=== PATIENT | female | born 1980 | race Two or more races ===

== ENCOUNTER 2023-12-24 14:29 | Emergency (ER) | payer MEDICAID ==
[~2023-12-24] VITALS: Ht 162.6 cm; Wt 66.6 kg
[2023-12-24 15:23] VITALS: BP 148/82; PULSE 107; RESP 18; TEMP 98.9; O2SAT 97
== END 2023-12-24 15:36 | disposition home or self-care (01) ==
LOC: ER 14:29
DX: S91.011A Laceration without foreign body, right ankle, initial encounter (principal); W25.XXXA Contact with sharp glass, initial encounter; Y93.89 Activity, other specified; Y92.89 Other specified places as the place of occurrence of the external cause; Y99.8 Other external cause status
CPT/HCPCS: 12001

== ENCOUNTER 2025-06-10 16:38 | Emergency (ER) | payer MEDICAID ==
[~2025-06-10] VITALS: Ht 162.6 cm; Wt 68.0 kg
[2025-06-10] MEDS ORDERED: TRAM-626 PO (17:46)
[2025-06-10] MEDS ORDERED: METH4PAK PO (17:46)
--- NOTE | 2025-06-10 17:46 | ED.PDOC ---
Back pain HPI HPI Comments The patient presents with left-sided sciatic pain following a fall three months ago. Three months ago patient fell at a gas station while attempting to jump over a pump landing on the right knee. A few days post fall the began experiencing pain in the tailbone, waist, and left sciatic nerve with the pain radiating down the posterior leg. The pain has progressively worsened currently rated 7/10 in his exacerbated by ambulation Patient also has difficulty sleeping due to the pain and experienced sharp pains in middle of the night. Two months ago she sought urgent care and received an injection which provided temporary improvement. She has also been taking [id number] ibuprofen with minimal improvement. Denies history of chronic steroid use or history of osteoporosis Denies history of cancer Denies fevers chills night sweats nausea vomiting unintentional weight loss Denies abdominal tearing pain Denies syncope Denies urinary changes or urinary incontinence Denies numbness tingling of the groin her inner thigh Denies previous back procedures or surgeries She has no history of back surgeries, no MHx, Chief Complaint: Back Pain Time Seen by MD: 17:34 Primary Care Provider: CECILIA Spencer Notes: Nurses Notes, Medications, Allergies Allergies: Coded Allergies: NO KNOWN ALLERGIES (Unverified , 12/24/23) Home Meds Active Scripts Methylprednisolone (Medrol Dosepak) 4 Mg Lv, 4 MG PO UD for 7 Days, #21 TAB 0 Refills [facility] Prov:ELISEO NETTLES TWISTING PRESS OPERATOR 06/10/25 Tramadol HCl (Tramadol HCl) 50 Mg Tab, 50 MG PO Q6HP PRN for 5 Days, #20 TAB 0 R efills Prov:ELISEO NETTLES NP 06/10/25 Information Source: Patient Mode of Arrival: Ambulatory Past Medical History PAST MEDICAL HISTORY: Denies Surgical History: Denies all surgeries BRUSH FABRICATION SUPERVISOR History: No Pertinent BRUSH FABRICATION SUPERVISOR History Family History Family History: Reviewed,noncontributory to illness Social History Smoker: Non-Smoker Alcohol: Denies ETOH Use Drugs: Denies Drug Use Lives In: Home Physical Exam General Appearance: No Apparent Distress, Normal HEENT: Normal ENT Inspection, Pharynx Normal, TMs Normal Neck: Full Range of Motion, Non-Tender, Normal, Normal Inspection Respiratory: Chest Non-Tender, Lungs Clear, No Accessory Muscle Use, No Respiratory Distress, Normal Breath Sounds Cardiovascular: No Edema, No JVD, No Murmur, No Gallop, Normal Peripheral Pulses, Regular Rate/Rhythm Breast Exam: Deferred Gastrointestinal: No Organomegaly, Non Tender, No Pulsatile Mass, Normal Bowel Sounds, Soft Genitalia: Deferred Pelvic: Deferred Rectal: Deferred Extremities: No calf tenderness, Normal capillary refill, Normal inspection, Normal range of motion, Non-tender, No pedal edema Musculoskeletal : Location: Right Extremity Location: Leg (Right straight leg raise test) Apperance: Normal Neurologic: Alert, plant protection superintendent II-XII nml as Tested, No Motor Deficits, Normal Affect, Normal Mood, No Sensory Deficits Cerebellar Function: Normal Reflexes: Normal Skin: Dry, Normal Color, Warm Lymphatic: No Adenopathy Was a procedure done? Was a procedure done?: No Back Pain Differential Dx Differential Diagnosis: Musculoskeletal Pain X-Ray, Labs, Meds, VS Vital Signs Date Time Temp Pulse Resp B/P (MAP) Pulse Ox O2 Delivery O2 Flow Rate FiO2 06/10/25 18:14 78 16 98 Room Air 06/10/25 18:14 98.7 78 16 136/68 (90) 97 98.7 06/10/25 16:48 98.4 80 16 149/57 97 98.4 Current Medications Medications (Trade) Dose Ordered Sig/Maribel Route Start Time Stop Time Status Last Admin Ketorolac Tromethamine (Toradol Injection) 60 mg ONCE ONCE IM 06/10/25 17:45 06/10/25 18:00 DC 06/10/25 18:04 Methylprednisolone Sodium Succinate (Solu Medrol) 125 mg ONCE ONCE IM 06/10/25 17:45 06/10/25 17:59 DC 06/10/25 18:04 Acetaminophen/ Hydrocodone Bitart ([place] 5/325MG Tab) 1 tab ONCE ONCE PO 06/10/25 17:45 06/10/25 17:58 DC 06/10/25 18:03 X-Ray, Labs, Meds, VS Comment Given patient's history and exam: Sciatica, cord compression, cauda equina, aortic dissection, Guillain-Luxor syndrome, epidural hematoma/abscess were all considered. Patient not toxic or ill-appearing. Vital signs within acceptable limits. Positive straight leg raise on exam with tenderness to the buttock consistent with sciatica. No vertebral point tenderness noted over the T or L- spine. No paraspinal muscle tenderness noted. No fever or IV drug use the. The differential for an acute vascular, neurologic, malignant, or infectious etiologies is much less likely given his/her presentation. The patient does not warrant a radiological exam at this time. Advised patient to try to take alternating Ibuprofen and Tylenol to help with inflammation of the sciatic nerve and surrounding tissues and should try to do low back stretches but also try to rest and avoid excessive sitting and bending. On reassessment, the patient's symptoms improved, and patient was able to ambulate without assistive devices. The patient will f/u with PMD to see if his/her symptoms maria alejandra. An MRI may need to be ordered if the symptoms worsen or do not improve over time. The patient was counseled in regard to the diagnosis and management of the condition and verbalized understanding of this. The patient understands to return to the ER or seek immediate medical attention if the symptoms worsen or return. Time of 1ST Reevaluation: 17:30 Reevaluation 1ST: Improved Patient Education/Counseling: Diagnosis, Treatment Family Education/Counseling: Diagnosis, Treatment SEPSIS Sepsis Screen Date sepsis recognized/suspect: Jun 10, 2025 Time Sepsis recognized/suspect: 1653 Recent Procedure: No On Antibiotic Therapy: No Respiratory Rate >20: No Heart Rate >90: No Temp<36 C (96.8 F) or >38.3 C: No SBP <90 or MAP <65 mmHG: No New Acute Mental Status Change: No Is the patient on CPAP, BIPAP,: No Vital Signs Date Time Temp Pulse Resp B/P (MAP) Pulse Ox O2 Delivery O2 Flow Rate FiO2 06/10/25 18:14 78 16 98 Room Air 06/10/25 18:14 98.7 78 16 136/68 (90) 97 98.7 06/10/25 16:48 98.4 80 16 149/57 97 98.4 Departure 1 Departure Time of Disposition: 17:45 Impression: Primary Impression: Sciatica Qualified Codes: M54.32 - Sciatica, left side Disposition: 01 HOME / SELF CARE / HOMELESS Condition: Stable e-Prescriptions Methylprednisolone (Medrol Dosepak) 4 Mg Lv 4 MG PO UD for 7 Days, #21 TAB 0 Refills UAD Prov: ELISEO NETTLES TWISTING PRESS OPERATOR 06/10/25 Tramadol HCl (Tramadol HCl) 50 Mg Tab 50 MG PO Q6HP PRN for 5 Days, #20 TAB 0 Refills Prov: ELISEO NETTLES NP 06/10/25 Critical Care Note Critical Care Time?: No Stability Stability form required: No Heart Score Heart Score: Heart Score Response (Comments) Value History N/A 0 EKG N/A 0 Age N/A 0 Risk Factors N/A 0 Troponin N/A 0 Total 0 ELISEO NETTLES NP Jun 10, 2025 17:46
[2025-06-10] MEDS: HYDROcodone-ACET 5/325MG TAB PO ONE (18:03)
[2025-06-10] MEDS: methylPREDNISolone SOD SUCC 125 MG/2 ML VL IM ONE (18:04)
[2025-06-10] MEDS: KETOROLAC TROMETH 60MG/2ML VIAL IM ONE (18:04)
[2025-06-10 18:14] VITALS: BP 136/68; PULSE 78; RESP 16; TEMP 98.7; O2SAT 98
== END 2025-06-10 18:53 | disposition home or self-care (01) ==
LOC: ER 16:38
DX: M54.32 Sciatica, left side (principal); Z79.899 Other long term (current) drug therapy
CPT/HCPCS: 96372; 99284; J1885; J2919

== ENCOUNTER 2025-06-14 13:15 | Emergency (ER) | payer MEDICAID ==
[~2025-06-14] VITALS: Ht 157.5 cm; Wt 67.0 kg
[~2025-06-14 13:15] MED LIST: METH4PAK PO; TRAM-626 PO
--- NOTE | 2025-06-14 13:58 | ED.PDOC ---
Back pain HPI HPI Comments A 44 YEAR OLD FEMALE PRESENTS TO THE ED WITH COMPLAINT OF LOWER BACK PAIN. PATENT STATES SHE HAS BEEN EXPERIENCING LOWER BACK PAIN THAT RADIATES DOWN HER LEFT LEG FOR THE PAST 5 DAYS. PATIENT REPORTS SHE CAME TO THIS ED FOR THIS COMPLAINT 5 DAYS AGO WHERE SHE WAS GIVEN A TORADOL INJECTION, SOLU-MEDROL INJECTION, AND 1 NORCO HERE IN THE ED AND WAS LATER PRESCRIBED TRAMADOL AND A MEDROL DOSEPAK, BUT NOTES THERE HAS BEEN NO IMPROVEMENT IN HER PAIN. PATIENT DENIES SADDLE ANESTHESIA, URINARY INCONTINENCE, BOWEL INCONTINENCE, FEVER, CHILLS, SHORTNESS OF BREATH, CHEST PAIN, ABDOMINAL PAIN, NAUSEA, VOMITING, HEADACHE, OR OTHER COMPLAINTS. NO OTHER SYMPTOMS OR MODIFYING FACTORS AT THIS TIME.PATIENT IS ALERT, ORIENTED X 4, AND HAS STEADY GAIT. Chief Complaint: Back Pain Time Seen by MD: 13:23 Primary Care Provider: CECILIA Spencer Notes: Nurses Notes, Medications, Allergies Allergies: Coded Allergies: NO KNOWN ALLERGIES (Unverified , 12/24/23) Home Meds Active Scripts Prednisone (Prednisone) 20 Mg Tab, 40 MG PO DAILY, #20 TAB Prov:JOSE MANUEL HOLBROOK 06/14/25 Hydrocodone-Acetaminophen (Hydrocodone Bitartrate/AC 5-325 mg) 1 Tab Tab, 1 TAB PO BID, #10 TAB Prov:JOSE MANUEL HOLBROOK 06/14/25 Methylprednisolone (Medrol Dosepak) 4 Mg Lv, 4 MG PO UD for 7 Days, #21 TAB 0 Refills UAD Prov:ELISEO NETTLES NP 06/10/25 Tramadol HCl (Tramadol HCl) 50 Mg Tab, 50 MG PO Q6HP PRN for 5 Days, #20 TAB 0 Refills Prov:ELISEO NETTLES NP 06/10/25 Information Source: Patient Mode of Arrival: Ambulatory Timing: Days Duration: Since onset, Days Location of Back pain: (B) Lumbar Radiates to: Anterior: (L) Buttocks, (L) Calf, (L) Thigh Radiates to: Posterior: (L) Buttocks, (L) Calf, (L) Thigh Radiates to: Medial: (L) Buttocks, (L) Calf, (L) Thigh Radiates to: Lateral: (L) Buttocks, (L) Calf, (L) Thigh Severity: Moderate Prehospital treatment: None Quality: Aching, Cramping Onset: Spontaneous History of: None Modifying Factors: Movement Associated signs and symptoms: None Past Medical History PAST MEDICAL HISTORY: Denies Surgical History: Denies all surgeries LOAN ASSOCIATE History: No Pertinent LOAN ASSOCIATE History Family History Family History: Reviewed,noncontributory to illness Social History Smoker: Non-Smoker Alcohol: Denies ETOH Use Drugs: Denies Drug Use Lives In: Home Constitutional: denies: chills, diaphoresis, fatigue, fever, malaise, sweats, weakness, others EENTM: denies: blurred vision, double vision, ear bleeding, ear discharge, ear drainage, ear pain, ear ringing, eye pain, eye redness, hearing loss, mouth pain, mouth swelling, nasal discharge, nose bleeding, nose congestion, nose pa in, photophobia, tearing, throat pain, throat swelling, voice changes, others Respiratory: denies: cough, hemoptysis, orthopnea, SOB at rest, shortness of breath, SOB with excertion, stridor, wheezing, others Cardiovascular: denies: chest pain, dizzy spells, diaphoresis, Dyspnea on exertion, edema, irregular heart beat, left arm pain, lightheadedness, palpitations, PND, syncope, others Gastrointestinal: denies: abdomen distended, abdominal pain, blood streaked bowels, constipated, diarrhea, dysphagia, difficulty swallowing, hematemesis, melena, nausea, poor appetite, poor fluid intake, rectal bleeding, rectal pain, vomiting, others Genitourinary: denies: abnormal vagina bleeding, burning, dyspareunia, dysuria, flank pain, frequency, hematuria, incontinence, pain, , vagina discharge, urgency, others Neurological: denies: dizziness, fainting, headache, left sided numbness, left sided weakness, numbness, paresthesia, pre-existing deficit, right sided numbness, right sided weakness, seizure, speech problems, tingling, tremors, weakness, others Musculoskeletal: reports: back pain (LOWER BACK PAIN THAT RADIATES DOWN LEFT LEG), muscle pain; denies: gout, joint pain, joint swelling, muscle stiffness, neck pain, others Integumetry: denies: bruises, change in color, change in hair/nails, dryness, laceration, lesions, lumps, rash, wounds, others Allergic/Immunocompromised: denies: Difficulty Healing, Frequent Infections, Hives, Itching, others Hematologic/Lymphatic: denies: anemia, blood clots, easy bleeding, easy bruising, swollen glands, others Endocrine: denies: excessive hunger, excessive sweating, excessive thirst, excessive urination, flushing, intolerance to cold, intolerance to heat, unexplained weight gain, unexplained weight loss, others Psychiatric: denies: anxiety, bipolar disorder, depression, hopeless, panic disorder, schizophrenia, sleepless, suicidal, others All Other Systems: Reviewed and Negative Physical Exam General Appearance: No Apparent Distress, Normal HEENT: Normal ENT Inspection, PERRL/EOMI, Pharynx Normal, TMs Normal Neck: Full Range of Motion, Non-Tender, Normal, Normal Inspection Respiratory: Chest Non-Tender, Lungs Clear, No Accessory Muscle Use, No Respiratory Distress, Normal Breath Sounds Cardiovascular: No Edema, No JVD, No Murmur, No Gallop, Normal Peripheral Pulses, Regular Rate/Rhythm Breast Exam: Deferred Gastrointestinal: No Organomegaly, Non Tender, No Pulsatile Mass, Normal Bowel Sounds, Soft Genitalia: Deferred Pelvic: Deferred Rectal: Deferred Extremities: No calf tenderness, Normal capillary refill, Normal inspection, Normal range of motion, Non-tender, No pedal edema Musculoskeletal : Location: Bilateral Extremity Location: Back Apperance: Tenderness: Moderate (TENDERNESS AND MUSCLE SPASM ON LOWER BACK, NO BONY TENDERNESS, SWELLING AND DEFORMITY. ) Neurologic: Alert, field coil winder II-XII nml as Tested, No Motor Deficits, Normal Affect, Normal Mood, No Sensory Deficits Cerebellar Function: Normal Reflexes: Normal Skin: Dry, Normal Color, Warm Peripheral Pulses: 2+ carotid (R), 2+ carotid (L) Lymphatic: No Adenopathy Was a procedure done? Was a procedure done?: No Back Pain Differential Dx Differential Diagnosis: Musculoskeletal Pain, Strain, Other (LOWER BACK PAIN WITH LEFT SCIATICA) Other Differential Diagnosis SCIATICA X-Ray, Labs, Meds, VS Vital Signs Date Time Temp Pulse Resp B/P (MAP) Pulse Ox O2 Delivery O2 Flow Rate FiO2 06/14/25 13:16 98.0 76 16 129/56 97 98.0 Current Medications Medications (Trade) Dose Ordered Sig/Maribel Route Start Time Stop Time Status Last Admin Ketorolac Tromethamine (Toradol Injection) 60 mg ONCE ONCE IM 06/14/25 14:00 06/14/25 14:01 DC 06/14/25 14:55 INDICATION: low back pain to left lower leg TECHNIQUE: Frontal and lateral views of the lumbar spine were obtained. COMPARISON: None FINDINGS: . There are no fractures or subluxations. Vertebral body heights and disc spaces are well maintained. Paravertebral soft tissues are unremarkable. IMPRESSION: 1. Of the visualized spine, there is no evidence for fracture or subluxation. ATED BY: VIRGINIA BELLO MD DICTATED DATE/TIME: 06/14/251423 SIGNED BY: VIRGINIA BELLO MD SIGNED DATE/TIME: 06/14/251423 CC: X-Ray, Labs, Meds, VS Comment EXTERNAL MEDICAL RECORDS REVIEWED: [NONE] INDEPENDENT HISTORIANS: [NONE] SOCIAL DETERMINANTS OF HEALTH: [NONE] LABS ORDERED: NONE REVIEWED AND INTERPRETED RESULTS: NONE IMAGING ORDERED: XR L-SPINE TREATMENTS ORDERED: TORADOL 60 MG IM PROCEDURES PERFORMED: NONE CRITICAL CARE TIME: NONE I HAVE DISCUSSED THE PATIENT WITH THE ATTENDING PHYSICIAN DR. ZACH LOVE AND SHE AGREES WITH THE PATIENT'S PLAN OF CARE AND DISPOSITION. BASED ON HISTORY OF PRESENT ILLNESS, AND PHYSICAL EXAM, PATIENT WILL BE DISCHARGED HOME. DISCUSSED PLAN FOR DISCHARGE HOME WITH RX [NORCO 5/325MG AND PREDNISONE]. MEDICATION WARNINGS GIVEN. SHARED DECISION MAKING: PATIENT INSTRUCTED TO FOLLOW UP WITH [facility] IN 1-2 DAYS FOR RE-EVALUATION OF SYMPTOMS. PATIENT VERBALIZES UNDERSTANDING TO RETURN TO ED FOR NEW OR WORSENING SYMPTOMS OR IF FOLLOW UP WITH PCP CANNOT BE OBTAINED. PATIENT FEELS COMFORTABLE GOING HOME AT THIS TIME. ALL QUESTIONS ADDRESSED AT TIME OF DISCHARGE. Images Reviewed?: Images reviewed and evaluated by me Time of 1ST Reevaluation: 15:05 Reevaluation 1ST: Improved Patient Education/Counseling: Diagnosis, Treatment, Need For Follow Up Family Education/Counseling: Diagnosis, Treatment, Need For Follow Up Medical Screening: No EMC Exist At This Time SEPSIS Sepsis Screen Date sepsis recognized/suspect: Jun 14, 2025 Time Sepsis recognized/suspect: 1318 Recent Procedure: No On Antibiotic Therapy: No Respiratory Rate >20: No Heart Rate >90: No Temp<36 C (96.8 F) or >38.3 C: No SBP <90 or MAP <65 mmHG: No New Acute Mental Status Change: No Is the patient on CPAP, BIPAP,: No Physician Orders Lumbar Spine 3 View (06/14/25 13:53) Vital Signs Date Time Temp Pulse Resp B/P (MAP) Pulse Ox O2 Delivery O2 Flow Rate FiO2 06/14/25 13:16 98.0 76 16 129/56 97 98.0 Medications Medications Dose Ordered Sig/Maribel Route Start Time Stop Time Status Last Admin Dose Admin Ketorolac Tromethamine 60 mg ONCE ONCE IM 06/14/25 14:00 06/14/25 14:01 DC 06/14/25 14:55 Departure 1 Departure Time of Disposition: 15:05 Impression: Primary Impression: Low back pain with left-sided sciatica Qualified Codes: M54.42 - Lumbago with sciatica, left side Disposition: HOME / SELF CARE / HOMELESS Condition: Stable Additional Instructions: FOLLOW-UP WITH PCP IN 1 TO 2 DAYS FOR MRI STUDY. TAKE MEDICATIONS PRESCRIBED. RETURN TO ED FOR ANY NEW OR WORSENING SYMPTOMS. e-Prescriptions Prednisone (Prednisone) 20 Mg Tab 40 MG PO DAILY, #20 TAB Prov: JOSE MANUEL HOLBROOK 06/14/25 Hydrocodone-Acetaminophen (Hydrocodone Bitartrate/AC 5-325 mg) 1 Tab Tab 1 TAB PO BID, #10 TAB Prov: JOSE MANUEL HOLBROOK 06/14/25 Discharged With: Self Critical Care Note Critical Care Time?: No Stability Stability form required: No I personally scribed for JOSE MANUEL HOLBROOK ([email or web address]) on 06/14/25 at 13:58. Electronically submitted by Emiliano Guevara ([email or web address]). I personally scribed for JOSE MANUEL HOLBROOK ([email or web address]) on 06/14/25 at 14:36. Electronically submitted by Emiliano Guevara ([email or web address]). I personally scribed for JOSE MANUEL HOLBROOK ([email or web address]) on 06/14/25 at 15:01. Electronically submitted by Emiliano Guevara ([email or web address]). JOSE MANUEL HOLBROOK Jun 14, 2025 13:58
--- NOTE | 2025-06-14 14:26 | DVH ---
INDICATION: low back pain to left lower leg TECHNIQUE: Frontal and lateral views of the lumbar spine were obtained. COMPARISON: None FINDINGS: . There are no fractures or subluxations. Vertebral body heights and disc spaces are well m aintained. Paravertebral soft tissues are unremarkable. IMPRESSION: 1. Of the visualized spine, there is no evidence for fracture or subluxation.
[2025-06-14] MEDS: KETOROLAC TROMETH 60MG/2ML VIAL IM ONE (14:55)
[2025-06-14] MEDS ORDERED: HYDR-4902 PO (15:01)
[2025-06-14] MEDS ORDERED: PRED20TA2 PO (15:01)
[2025-06-14 15:10] VITALS: BP 118/74; TEMP 98.6
[2025-06-14 15:16] VITALS: PULSE 69; RESP 16; O2SAT 98
== END 2025-06-14 15:20 | disposition home or self-care (01) ==
LOC: ER 13:15
DX: M54.42 Lumbago with sciatica, left side (principal); Z79.899 Other long term (current) drug therapy
CPT/HCPCS: 72100; 96372; 99283; J1885

== ENCOUNTER 2025-07-18 17:31 | Emergency (ER) | payer MEDICAID ==
[~2025-07-18] VITALS: Ht 162.6 cm; Wt 69.2 kg
[~2025-07-18 17:31] MED LIST changes: +HYDR-4902 PO; +PRED20TA2 PO
[2025-07-18 17:35] VITALS: BP 136/80; PULSE 16; RESP 84; TEMP 98.4; O2SAT 99
[2025-07-18] MEDS ORDERED: NAP500T PO (20:17)
[2025-07-18] MEDS ORDERED: METH4PAK PO (20:17)
[2025-07-18] MEDS ORDERED: CYCL-837 PO (20:17)
--- NOTE | 2025-07-18 20:17 | ED.PDOC ---
Musculoskeletal HPI Comments 44-year-old female presents to ER with complaints of back pain x2 weeks. Patient past medical history significant for chronic lumbar back pain/left-sided sciatica reports that she has been experiencing "a flare-up" of left-sided sciatic back pain x2 weeks. Denies any known trauma/injury and notes that Naprosyn and methocarbamol have given her relief in the past. She rates her current pain an 8/10 to left lower lumbar region with radiation down left posterior leg. Patient presents to ER ambulatory on arrival, with steady, in no distress and states she does have chronic numbness/tingling down posterior left leg. States she is following up to get an MRI of her lumbar spine next month on "August 06". Denies fever, body aches, chills, night sweats, shortness of breath, chest pain, extremity weakness, changes in urination/BM or any further symptoms/complaints Chief Complaint: Lower Extremity Time Seen by MD: 18:10 Primary Care Provider: CECILIA Spencer Notes: Nurses Notes, Medications, Allergies Allergies: Coded Allergies: NO KNOWN ALLERGIES (Unverified , 12/24/23) Home Meds Active Scripts Naproxen (NAPROSYN TABLET) 500 Mg Tb, 1 TAB PO BID PRN, #30 TAB 0 Refills Prov:JOHN MISHRA 07/18/25 Methylprednisolone (Medrol Dosepak) 4 Mg Lv, 4 MG PO UD, #21 TAB 0 Refills UAD Prov:JOHN MISHRA 07/18/25 Cyclobenzaprine Hcl (Cyclobenzaprine Hcl) 5 Mg Tab, 1 TAB PO QHSP, #14 TAB 0 Ref ills Prov:JOHN MISHRA 07/18/25 Prednisone (Prednisone) 20 Mg Tab, 40 MG PO DAILY, #20 TAB Prov:JOSE MANUEL HOLBROOK 06/14/25 Hydrocodone-Acetaminophen (Hydrocodone Bitartrate/AC 5-325 mg) 1 Tab Tab, 1 TAB PO BID, #10 TAB Prov:JOSE MANUEL HOLBROOK 06/14/25 Methylprednisolone (Medrol Dosepak) 4 Mg Lv, 4 MG PO UD for 7 Days, #21 TAB 0 Refills UAD Prov:ELISEO NETTLES NP 06/10/25 Tramadol HCl (Tramadol HCl) 50 Mg Tab, 50 MG PO Q6HP PRN for 5 Days, #20 TAB 0 Refills Prov:ELISEO NETTLES LIV 06/10/25 Information Source: Patient Mode of Arrival: Ambulatory Past Medical History Past Medical History (Other): Chronic lumbar back pain Left sided sciatica Surgical History: Denies all surgeries SERVICE GIRL History: No Pertinent SERVICE GIRL History Family History Family History: Unknown Social History Smoker: Non-Smoker Alcohol: Denies ETOH Use Drugs: Denies Drug Use Lives In: Home Constitutional: denies: chills, diaphoresis, fatigue, fever, malaise, sweats, weakness, others EENTM: denies: blurred vision, double vision, ear bleeding, ear discharge, ear drainage, ear pain, ear ringing, eye pain, eye redness, hearing loss, mouth pain, mouth swelling, nasal discharge, nose bleeding, nose congestion, nose pain, photophobia, tearing, throat pain, throat swelling, voice changes, others Respiratory: denies: cough, hemoptysis, orthopnea, SOB at rest, shortness of breath, SOB with excertion, stridor, wheezing, others Cardiovascular: denies: chest pain, dizzy spells, diaphoresis, Dyspnea on exertion, edema, irregular heart beat, left arm pain, lightheadedness, palpitations, PND, syncope, others Gastrointestinal: denies: abdomen distended, abdominal pain, blood streaked bowels, constipated, diarrhea, dysphagia, difficulty swallowing, hematemesis, melena, nausea, poor appetite, poor fluid intake, rectal bleeding, rectal pain, vomiting, others Genitourinary: denies: abnormal vagina bleeding, burning, dyspareunia, dysuria, flank pain, frequency, hematuria, incontinence, pain, , vagina discharge, urgency, others Neurological: reports: others (As stated in HPI) Musculoskeletal: reports: others (As stated in HPI) Integumetry: denies: bruises, change in color, change in hair/nails, dryness, laceration, lesions, lumps, rash, wounds, others Allergic/Immunocompromised: denies: Difficulty Healing, Frequent Infections, Hives, Itching, others Hematologic/Lymphatic: denies: anemia, blood clots, easy bleeding, easy bruising, swollen glands, others Endocrine: denies: excessive hunger, excessive sweating, excessive thirst, excessive urination, flushing, intolerance to cold, intolerance to heat, unexplained weight gain, unexplained weight loss, others Psychiatric: denies: anxiety, bipolar disorder, depression, hopeless, panic disorder, schizophrenia, sleepless, suicidal, others Physical Exam General Appearance: No Apparent Distress HEENT: PERRL/EOMI Neck: Full Range of Motion, Non-Tender, Normal Respiratory: Chest Non-Tender, Lungs Clear, No Accessory Muscle Use, No Respiratory Distress, Normal Breath Sounds Cardiovascular: No Murmur, No Gallop, Regular Rate/Rhythm Breast Exam: Deferred Gastrointestinal: Non Tender, No Pulsatile Mass, Soft Genitalia: Deferred Pelvic: Deferred Rectal: Deferred Extremities: Normal capillary refill, Normal range of motion Musculoskeletal : Extremity Location: Back (TTP to left lower lumbar paraspinals noted. No skin changes noted. No bony tenderness to lumbar/thoracic spine appreciated. Steady gait noted) Neurologic: Alert, No Motor Deficits, Normal Affect, Normal Mood, No Sensory Deficits Cerebellar Function: Normal Reflexes: Normal Skin: Dry, Normal Color, Warm Peripheral Pulses: 2+ femoral (R), 2+ femoral (L), 2+ dorsalis pedis (R), 2+ dorsalis pedis (L), 2+ Radial (R), 2+ Radial (L), 2+ Brachial (R), 2+ Brachial (L) Lymphatic: No Adenopathy Was a procedure done? Was a procedure done?: No Sedation Sedation?: No Differential Diagnosis EXT Differential Diagnosis: Fracture, Neurovascular injury, Other (UTI) X-Ray, Labs, Meds, VS Vital Signs Date Time Temp Pulse Resp B/P (MAP) Pulse Ox O2 Delivery O2 Flow Rate FiO2 07/18/25 17:35 98.4 16 84 136/80 99 98.4 Toradol 60 mg IM ordered Patient neurovascularly intact and reported improvement in symptoms prior to discharge Advised on rest/no strenuous activity Advised to follow up with PCP and pain management in 1-2 days Patient verbalized understanding and agreeable with current plan of care Advised to return to ER immediately if symptoms worsen Time of 1ST Reevaluation: 19:54 Reevaluation 1ST: N/A Patient Education/Counseling: Diagnosis, Treatment, Prognosis, Need For Follow Up Family Education/Counseling: No Family Present Departure 1 Departure Time of Disposition: 20:14 Impression: Primary Impression: Low back pain with left-sided sciatica Qualified Codes: M54.42 - Lumbago with sciatica, left side; G89.29 - Other chronic pain Disposition: 01 HOME / SELF CARE / HOMELESS Condition: Stable e-Prescriptions Naproxen (NAPROSYN TABLET) 500 Mg Tb 1 TAB PO BID PRN, #30 TAB 0 Refills Prov: JOHN MISHRA 07/18/25 Methylprednisolone (Medrol Dosepak) 4 Mg Lv 4 MG PO UD, #21 TAB 0 Refills UAD Prov: JOHN MISHRA 07/18/25 Cyclobenzaprine Hcl (Cyclobenzaprine Hcl) 5 Mg Tab 1 TAB PO QHSP, #14 TAB 0 Refills Prov: JOHN MISHRA 07/18/25 Discharged With: Self Critical Care Note Critical Care Time?: No Stability Stability form required: No Heart Score Heart Score: Heart Score Response (Comments) Value History N/A 0 EKG N/A 0 Age N/A 0 Risk Factors N/A 0 Troponin N/A 0 Total 0 JOHN MISHRA Jul 18, 2025 20:17
[2025-07-18] MEDS: KETOROLAC TROMETH 60MG/2ML VIAL IM ONE (20:34)
== END 2025-07-18 20:34 | disposition home or self-care (01) ==
LOC: ER 17:31
DX: M54.42 Lumbago with sciatica, left side (principal); Z79.891 Long term (current) use of opiate analgesic; Z79.52 Long term (current) use of systemic steroids; Z79.899 Other long term (current) drug therapy
CPT/HCPCS: 96372; 99283; J1885